=== PATIENT | male | born 1960 | race Caucasian/White ===

== ENCOUNTER 2024-11-11 11:31 | Outpatient (CLI) | payer OTHER, SELFPAY ==
[2024-11-11 11:54] LABS: Basophils Absolute Auto 0.1 K/mm3 (0.0-0.1); Eosinophils Absolute Auto 0.2 K/mm3 (0-0.3); Eosinophils Percent Auto 2.2 % (0-4.4); Hematocrit 41.3 % (42.0-52.0); Hemoglobin 14.3 g/dL (14.0-18.0); Immature Granulocyte Absolute 0.02 K/mm3 (0.00-0.031); Immature Granulocyte Percent A 0.3 % (0-0.5); Lymphocytes Absolute Auto 2.68 K/mm3 (0.9-3.2); Lymphocytes Percent Auto 39.5 % (18.3-44.2); Mean Corpuscular HGB Conc 34.6 g/dl (32-36); Mean Corpuscular Hemoglobin 34.2 pg (26-34); Mean Corpuscular Volume 98.8 fl (80-100); Mean Platelet Volume 10.9 fl (7.4-10.4); Monocytes Absolute Auto 0.5 K/mm3 (0.1-0.6); Monocytes Percent Auto 7.8 % (2.6-8.5); Neutrophils Absolute Auto 3.3 K/mm3 (1.3-6.7); Neutrophils Percent Auto 49.2 % (45.5-73.1); Platelet Count Result 183 k/mm3 (150-375); Red Blood Count 4.18 M/mm3 (4.6-6.20); Red Cell Distribution Width 12.6 % (11.5-14.5); White Blood Count 6.8 K/mm3 (4.5-10.0)
[2024-11-11 12:08] LABS: Alanine Aminotransferase 32 U/L (6-50); Albumin Level 4.5 g/dL (3.5-5.1); Alkaline Phosphatase 55 U/L (38-126); Anion Gap 3 mmol/L (4-12); Aspartate Amino Transferase 28 U/L (17-59); Bilirubin,Total 0.7 mg/dL (0.2-1.3); Blood Urea Nitrogen 16 mg/dL (9-20); Calcium 9.4 mg/dL (8.4-10.2); Carbon Dioxide 31 mmol/L (22-30); Chloride 104 mmol/L (98-107); Cholesterol 204 mg/dL (0-200); Estimated Glomerular Filt Rate > 60; Glucose 94 mg/dL (65-110); HDL Direct 36 mg/dL; Potassium 4.2 mmol/L (3.4-5.0); Sodium 138 mmol/L (137-145); Triglycerides 328 mg/dL (<150)
[2024-11-11 12:20] LABS: LDL Cholesterol Direct 90 mg/dL
[2024-11-11 12:40] LABS: Prostate Specific Antigen 0.5 ng/mL (< OR = 4.0)
[2024-11-14 23:43] LABS: Testosterone Total 259 ng/dL (250-1100)
== END 2024-11-11 11:32 | disposition home or self-care (01) ==
LOC: ANHLAB 11:33
PROVIDERS: PCP Nurse Practitioner Family; Visit Provider Nurse Practitioner Family
DX: Z13.220 Encounter for screening for lipoid disorders (principal); R68.82 Decreased libido; N52.9 Male erectile dysfunction, unspecified; M79.645 Pain in left finger(s); Z12.5 Encounter for screening for malignant neoplasm of prostate
CPT/HCPCS: 36415; 80053; 80061; 82607; 84153; 84403; 84443; 85025; G0103

== ENCOUNTER 2024-11-21 08:21 | Outpatient (CLI) | payer OTHER, SELFPAY ==
[2024-11-21 09:13] LABS: Iron 113 ug/dL (49-181)
[2024-11-21 09:22] LABS: Percent Iron Saturation 38 % (20-50)
== END 2024-11-21 08:22 | disposition home or self-care (01) ==
LOC: ANHLAB 08:24
PROVIDERS: PCP Nurse Practitioner Family; Visit Provider Nurse Practitioner Family
DX: D64.9 Anemia, unspecified (principal); R68.82 Decreased libido; N52.9 Male erectile dysfunction, unspecified
CPT/HCPCS: 36415; 83540; 83550; 84403

== ENCOUNTER 2024-12-30 05:52 | Day surgery (SDC) | payer OTHER, SELFPAY ==
[2024-12-09 09:35] VITALS: BMI 31.9
[2024-12-30 06:25] VITALS: BP 118/96; PULSE 79; RESP 16; TEMP 36.6; O2SAT 98
[2024-12-30] MEDS: LACTATED RINGERS 1,000 ML 150 ML IV CONT (06:32)
--- NOTE | 2024-12-30 07:15 | WPDANESEPPF ---
Anes - Initial Pre Proc Eval Procedure: Operation Date: 12/30/24 07:30 Proposed Procedures p Screening Colonoscopy - Grant Chino DO Date/Time: 12/30/24 07:15 Surgeon: Grant Chino DO Pre Op Diagnosis: Neoplasm Screening Patient Data Age: 64 Gender: M Height: 1.88 m Weight: 116.2 kg Last Vital Signs Temp 36.6 C 12/30/24 06:25 Pulse 79 12/30/24 06:25 Resp 16 12/30/24 06:25 BP 118/96 H 12/30/24 06:25 Pulse Ox 98 12/30/24 06:25 O2 Del Method Room Air 12/30/24 06:25 Allergies Allergy/AdvReac Type Severity Reaction Status Date / Time No Known Allergies Allergy Verified 12/30/24 06:18 Home Medications ?Medication ?Instructions ?Recorded ?Confirmed ?Type celecoxib 200 mg capsule 200 mg PO BID #30 caps 11/11/24 12/30/24 Rx oxsjhkex-rk-txmeo 300 mcg-K 60 1 tablet PO DAILY 11/11/24 12/30/24 History mcg-lycop 600 mcg-lutein 300 mcg tablet (Centrum Silver Men) omega 3-esk-lez-fish oil 1,000 mg 1 cap PO DAILY 11/11/24 12/30/24 History (120 mg-180 mg) capsule (Fish Oil) phosphatidylserine 100 mg capsule 100 mg PO DAILY 11/11/24 12/30/24 History saw palmetto 250 mg capsule 500 mg PO ONCE 11/11/24 12/30/24 History testosterone 1 pump topical DAILY #75 grams 11/28/24 12/30/24 Rx Patient hx anesthesia problems: none Family hx anesthesia problems: none Results Review: All pre-operative results and documents have been reviewed as part of the pre-operative evaluation. [facility] Past Medical History Medical History (Updated 12/30/24 @ 07:15 by Dante Joseph MD) Obesity Family History Family History Father Heart problem Social History Social History (Updated 12/30/24 @ 07:15 by Dante Joseph MD) Smoking status: Former smoker Alcohol intake: current Drinks per week: 21 Alcohol use details: 15-21 drinks per week Substance use: never Substance use type: does not use Do You Feel Safe in your Home?: Yes Lack of Transportation: No Lack of Food: Never True Current Housing: I Have Housing Concerned About Future Housing: No Difficulty Paying Gas/Electric Bills: No Difficulty Paying for Meds: Decline to Answer Currently Unemployed: No Education: Bachelor's Degree Difficulty w/ Childcare or Family Care: No Living arrangements: with family Spiritual care concerns: No Anes - Eval Final PreProcedure Day of Procedure 12/30/24 07:15 Patient weight: obese Heart: regular rate and rhythm Lungs: clear to auscultation Airway: Mallampati scale class II Neurological: alert and oriented Last oral intake: >/= 8 hours ASA classification: II Emergent: no Anesthetic plan: proceed Results Review: All pre-operative results and documents have been reviewed as part of the pre-operative evaluation. Informed Consent: The patient's anesthetic plan and its attendant risks and benefits were discussed with the patient/family/POA. Questions were solicited and answers provided to the satisfaction of the patient/family/POA.
--- NOTE | 2024-12-30 07:26 | PM.IMHP ---
H&P: HPI History of Present Illness Date/Time: 12/30/24 07:26 Chief Complaint: Screening for colorectal cancer Narrative: 64 yo man presents for colonoscopy. He has never had a colonoscopy before. Denies hematochezia or melena. Denies fam hx colon cancer. Review of Systems Review of Systems: All systems reviewed & are unremarkable except as noted in HPI and below Constitutional: Constitutional: Denies chills, Denies fever(s), Denies headache(s) and Denies weight loss Eyes: Eyes: Denies change in vision ENT: Denies dizziness, Denies headache(s), Denies neck mass and Denies throat swelling Cardiovascular: Cardiovascular: Denies chest pain, Denies lightheadedness and Denies dyspnea Respiratory: Respiratory: Denies cough, Denies dyspnea and Denies wheezing Gastrointestinal: Gastrointestinal: Denies abdominal pain, Denies change in bowel habits, Denies nausea and Denies vomiting Genitourinary: Genitourinary: Denies hematuria and Denies dysuria Musculoskeletal: Musculoskeletal: Reports as per HPI Integumentary/Breasts: Skin/Breast: Reports as per HPI Neurologic: Denies dizziness and Denies headache(s) Allergic/Immunologic: Allergic/Immunologic: Denies throat swelling and Denies wheezing [facility] Past Medical History Medical History (Updated 12/30/24 @ 07:15 by Dante Joseph MD) Obesity Family History Family History Father Heart problem Social History Social History (Updated 12/30/24 @ 07:15 by Dante Joseph MD) Smoking status: Former smoker Alcohol intake: current Drinks per week: 21 Alcohol use details: 15-21 drinks per week Substance use: never Substance use type: does not use Do You Feel Safe in your Home?: Yes Lack of Transportation: No Lack of Food: Never True Current Housing: I Have Housing Concerned About Future Housing: No Difficulty Paying Gas/Electric Bills: No Difficulty Paying for Meds: Decline to Answer Currently Unemployed: No Education: Bachelor's Degree Difficulty w/ Childcare or Family Care: No Living arrangements: with family Spiritual care concerns: No Meds Home Medications and Allergies Home Medications ?Medication ?Instructions ?Recorded ?Confirmed ?Type celecoxib 200 mg capsule 200 mg PO BID #30 caps 11/11/24 12/30/24 Rx qvakybgt-sf-eaqxi 300 mcg-K 60 1 tablet PO DAILY 11/11/24 12/30/24 History mcg-lycop 600 mcg-lutein 300 mcg tablet (Centrum Silver Men) omega 7-dmz-zoq-fish oil 1,000 mg 1 cap PO DAILY 11/11/24 12/30/24 History (120 mg-180 mg) capsule (Fish Oil) phosphatidylserine 100 mg capsule 100 mg PO DAILY 11/11/24 12/30/24 History saw palmetto 250 mg capsule 500 mg PO ONCE 11/11/24 12/30/24 History testosterone 1 pump topical DAILY #75 grams 11/28/24 12/30/24 Rx Allergies Allergy/AdvReac Type Severity Reaction Status Date / Time No Known Allergies Allergy Verified 12/30/24 06:18 Vital Signs Vital Signs - 24 hr 12/30/24 06:25 Temperature 97.9 F Pulse Rate 79 Respiratory Rate 16 Blood Pressure 118/96 H Pulse Oximetry 98 Oxygen Delivery Room Air Exam Const: General: no acute distress and alert Orientation/consciousness: patient oriented x3 HENMT: Head: normocephalic and atraumatic Ears: hearing grossly normal bilaterally Face/Nose/Sinus: Normal nares present Mouth: Yes Normal oral and palatal mucosa present Eyes: Periorbital: periorbital findings normal Sclera: sclerae normal EOM: EOMs intact bilaterally Neck: Neck: normal visual inspection, no lymphadenopathy and trachea midline Chest: Chest palpation & inspection: normal inspection of the chest Resp: Effort & Inspection: normal respiratory effort Auscultation: clear to auscultation bilaterally Cardio: Jugular venous distension: no JVD Rate: regular rate Rhythm: regular rhythm Heart sounds: S1 normal heart sound present and S2 normal heart sound present Peripheral pulses: Peripheral pulses 2+ throughout GI: Inspection: normal to inspection GI Palp: Yes Soft to palpation, No Tenderness to palpation present (GI), No Guarding due to palpation present (GI) and No Rebound tenderness present Percussion: Yes normal to percussion Auscultation: normal bowel sounds : General: Yes no CVA tenderness Back/Spine/Pelvis: Back: no CVA tenderness Neuro: General: patient oriented x3, no focal motor deficits and CN's II-XI intact bilaterally Cognition (Neuro): normal cognition Speech: normal speech Motor exam (neuro): 5/5 motor strength present throughout Extrem: General: capillary refill normal and no clubbing, cyanosis or edema Assessment and Plan Assessment and plan (1) Colon cancer screening: Code(s): Z12.11 - Encounter for screening for malignant neoplasm of colon Status: Acute Assessment and Plan: I have recommended colonoscopy. I have discussed the procedure, risks, benefits, and alternatives. Questions were answered. Patient is agreeable to proceed.
[2024-12-30 07:47] VITALS: BP 113/78; PULSE 78; RESP 14; O2SAT 98
[2024-12-30 07:57] VITALS: BP 107/79; PULSE 72; RESP 15; O2SAT 96
[2024-12-30 08:07] VITALS: BP 121/74; PULSE 73; RESP 14; O2SAT 97
--- NOTE | 2024-12-30 08:21 | WPDANESPN ---
Anes - Prog Note Post-Op Date/Time: 12/30/24 08:21 Cardiovascular status: normal Respiratory status: normal Airway patency: baseline Mental status: baseline Post-Op hydration status: normal Vital Signs: Last Vital Signs Temp 36.6 C 12/30/24 06:25 Pulse 73 12/30/24 08:07 Resp 14 12/30/24 08:07 BP 121/74 12/30/24 08:07 Pulse Ox 97 12/30/24 08:07 O2 Del Method Room Air 12/30/24 08:07 Pain Score (VAS): 0/10 I/O: Intake & Output 12/29/24 12/30/24 12/30/24 23:59 07:59 15:59 Intake Total 400 350 Balance 400 350 Patient Feedback: Patient satisfied with anesthetic care.
== END 2024-12-30 08:25 | disposition home or self-care (01) ==
PROVIDERS: PCP Nurse Practitioner Family; Visit Provider Surgery
PROC: 0DJD8ZZ Inspection of Lower Intestinal Tract, Via Natural or Artificial Opening Endoscopic (ICD-10-PCS; CPT 45378; principal; 2024-12-30 07:30)
DX: Z12.11 Encounter for screening for malignant neoplasm of colon (principal); K57.30 Diverticulosis of large intestine without perforation or abscess without bleeding
CPT/HCPCS: 45378